=== PATIENT | male | born 1995 | race American Indian/Alaskan Native ===

== ENCOUNTER 2017-01-01 08:37 | Emergency (ER) | payer SELFPAY ==
[2017-01-01 08:48] VITALS: BP 145/85
[2017-01-01] MEDS ORDERED: ZITHROMAX PO ONE (09:53)
[2017-01-01] MEDS ORDERED: ROCEPHIN IM ONE (09:53)
[2017-01-01] MEDS ORDERED: XYLOCAINE 1% MPF 5 mL INFILTRATI ONE (09:56)
--- NOTE | 2017-01-01 10:01 | Emergency Department Report ---
ED Male HPI - General Chief complaint: Urogenital-Male Stated complaint: DISCHARGE Time Seen by Provider: 01/01/17 09:40 Source: patient Mode of arrival: Ambulatory Limitations: No Limitations - History of Present Illness Initial comments: Pt c/o penile discharge and dysuria x 1 week. PT states he had this problem a couple of times. PT states he was seen in October for it. PT states he has one partner and he does not use condoms. PT reports that his partner has been seen and tested and she does not have any STDs. MD Complaint: penile discharge -: Gradual Location: penis Radiation: none Severity scale (0 -10): 4 Quality: burning Consistency: intermittent (worse right after urination ) Improves with: other (the antibiotics that he was given in october ) discharge, dysuria. denies: fever, nausea/vomiting - Related Data Sexually active: Yes Previous Rx's Medication Instructions Recorded Last Taken Type Doxycycline Monohydrate 100 mg PO BID #14 capsule 10/18/16 Unknown Rx [Doxycycline Monohydrate CAP] Allergies Allergy/AdvReac Type Severity Reaction Status Date / Time No Known Allergies Allergy Verified 10/18/16 09:48 ED Review of Systems ROS: Stated complaint: DISCHARGE Other details as noted in HPI Comment: All other systems reviewed and negative Constitutional: denies: fever Gastrointestinal: denies: abdominal pain Genitourinary: as per HPI ED Past Medical Hx - Past Medical History Previous Medical History?: No - Surgical History Past Surgical History?: No - Social History Smoking Status: Never Smoker Substance Use Type: None - Medications Home Medications: Home Medications Medication Instructions Recorded Confirmed Last Taken Type Doxycycline Monohydrate 100 mg PO BID #14 capsule 10/18/16 Unknown Rx [Doxycycline Monohydrate CAP] ED Physical Exam - General Limitations: No Limitations General appearance: alert, in no apparent distress - Head Head exam: Present: atraumatic, normocephalic - Eye Eye exam: Present: normal appearance - ENT ENT exam: Present: normal exam - Neck Neck exam: Present: normal inspection - Respiratory Respiratory exam: Present: normal lung sounds bilaterally. Absent: respiratory distress, wheezes, accessory muscle use - Cardiovascular Cardiovascular Exam: Present: regular rate, normal rhythm, normal heart sounds - GI/Abdominal GI/Abdominal exam: Present: soft - Rectal Rectal exam: Present: deferred - Extremities Exam Extremities exam: Present: normal inspection, full ROM - Back Exam Back exam: Present: normal inspection, full ROM - Neurological Exam Neurological exam: Present: alert, oriented X3 - Psychiatric Psychiatric exam: Present: normal affect, normal mood - Skin Skin exam: Present: warm, dry ED Course Vital Signs 01/01/17 08:44 Temperature 98.4 F Pulse Rate 86 Respiratory 16 Rate Blood Pressure 145/85 - Reevaluation(s) Reevaluation #1: 01/01/17 10:00 Pt aware he has symptoms of STD. Will treat while in ED. PT encouraged to follow up for further testing. ED Medical Decision Making - Differential Diagnosis std Critical care attestation.: If time is entered above; I have spent that time in minutes in the direct care of this critically ill patient, excluding procedure time. ED Disposition Clinical Impression: Penile discharge Disposition: DISCHARGED TO HOME OR SELFCARE Is pt being admited?: No Does the pt Need Aspirin: No Condition: Stable Instructions: Sexually Transmitted Diseases (ED), Condom Use (ED), Safe Sex (ED ) Additional Instructions: Follow up with PCP or health dept for further testing No sex x 7 days let your partner know that she may need testing/ treatment Referrals: PRIMARY CARE, [Primary Care Provider] - 3-5 Days
== END 2017-01-01 11:27 | disposition home or self-care (01) ==
LOC: ED 08:37
DX: R36.9 Urethral discharge, unspecified (principal); R30.0 Dysuria
CPT/HCPCS: 87086; 87591; 96372; 99282; J0696

== ENCOUNTER 2018-01-16 10:40 | Emergency (ER) | payer SELFPAY ==
[2018-01-16 10:47] VITALS: BP 140/87
[2018-01-16] MEDS ORDERED: ROCEPHIN IM ONE (12:40)
[2018-01-16] MEDS ORDERED: XYLOCAINE 1% MPF 5 mL INFILTRATI ONE (12:40)
[2018-01-16] MEDS ORDERED: ZITHROMAX PO ONE (12:40)
[2018-01-16] MEDS ORDERED: MOTRIN PO ONE (12:42)
--- NOTE | 2018-01-16 12:46 | Emergency Department Report ---
Chief Complaint: Urogenital-Male Stated Complaint: PENILE DISCHARGE/STD Time Seen by Provider: 01/16/18 12:19 - HPI History of Present Illness: The patient's 22-year-old who presents for evaluation of dysuria. The patient reports dysuria and penile discharge for the past one day. He admits to protect sexual intercourse within the past 3 months. The patient denies fever, chills, night sweats, testicular swelling or pain, diarrhea, blood in the stool , dark tarry stool, hematuria, flank pain, inability to pass flatus. - Exam Vital Signs: Vital Signs 01/16/18 10:43 Temperature 98.7 F Pulse Rate 77 Respiratory 18 Rate Blood Pressure 140/87 O2 Sat by Pulse 99 Oximetry MSE screening note: Focused history and physical exam performed. Due to findings the following was ordered: ED Disposition for MSE Condition: Stable Referrals: PRIMARY CARE, [Primary Care Provider] - 3-5 Days
[2018-01-16 13:27] LABS: Bilirubin,Urine NEG (Negative); Blood,Urine NEG (Negative); Color,Urine Yellow (Yellow); Protein,Urine <15 mg/dL mg/dL (Negative)
--- NOTE | 2018-01-16 13:52 | Emergency Department Report ---
HPI - General Chief Complaint: Urogenital-Male Time Seen by Provider: 01/16/18 12:19 - HPI HPI: The patient's 22-year-old who presents for evaluation of dysuria. The patient reports suprapubic abdominal pain, cramping quality, mild in severity, constant for the past one day, and associated with dysuria and penile discharge for the past one day. He admits to unprotected sexual intercourse within the past 3 months. The patient denies fever, chills, night sweats, testicular swelling or pain, diarrhea, blood in the stool, dark tarry stool, hematuria, flank pain, inability to pass flatus. ED Past Medical Hx - Past Medical History Previous Medical History?: No - Surgical History Past Surgical History?: No - Social History Smoking Status: Never Smoker Substance Use Type: None - Medications Home Medications: Home Medications Medication Instructions Recorded Confirmed Last Taken Type Doxycycline Monohydrate 100 mg PO BID #14 capsule 10/18/16 Unknown Rx [Doxycycline Monohydrate CAP] Cephalexin [Keflex] 500 mg PO Q6HR #20 capsule 01/16/18 Unknown Rx Ibuprofen [Motrin] 800 mg PO Q8HR PRN #15 tablet 01/16/18 Unknown Rx metroNIDAZOLE [Flagyl] 500 mg PO Q12HR #14 tab 01/16/18 Unknown Rx ED Review of Systems ROS: Stated complaint: PENILE DISCHARGE/STD Other details as noted in HPI Constitutional: denies: fever ENT: denies: throat or neck pain Respiratory: denies: cough, shortness of breath Cardiovascular: denies: chest pain Endocrine: denies unexplained weight loss or gain Gastrointestinal: denies: abdominal pain, nausea Genitourinary: reports penile discharge and dysuria Musculoskeletal: denies: leg swelling Skin: denies: rash Neurological: denies: headache Hematological/Lymphatic: denies: easy bleeding or easy bruising Psych: denies sadness or hopelessness Physical Exam - Physical Exam Vital Signs: Vital Signs 01/16/18 10:43 Temperature 98.7 F Pulse Rate 77 Respiratory 18 Rate Blood Pressure 140/87 O2 Sat by Pulse 99 Oximetry Physical Exam: General: well-nourished, well-developed, no acute distress Head: Normocephalic, atraumatic Eyes: normal sclera ENT: Mucous membranes are pink and moist Neck: trachea midline, neck supple, No neck stiffness, no cervical adenopathy Respiratory: Breath sounds equal bilaterally, no wheezing, rales, or rhonchi Cardio: S1 and S2 present, no murmurs, rubs, gallops, capillary refill is brisk Abdomen: Normoactive bowel sounds, soft abdomen, she will be returned as a palpation present, no rigidity, no guarding or rebound tenderness Chest WALL/Back: No tenderness to palpation of the chest wall, no CVA tenderness with percussion Musc: No pitting edema Skin: No rash Neuro: no facial drooping, normal speech Psych: Normal affect ED Course Vital Signs 01/16/18 10:43 Temperature 98.7 F Pulse Rate 77 Respiratory 18 Rate Blood Pressure 140/87 O2 Sat by Pulse 99 Oximetry ED Medical Decision Making - Medical Decision Making The patient was seen and examined by myself. The patient is placed on a quality assurance monitor body and continuous pulse ox. On initial evaluation, the patient was found to be in no distress. Evaluation orders are placed. The patient given pain medicine. Lab results revealed elevated urinalysis WBC with positive leukocyte esterase, consistent with acute urinary tract infection. The patient is given antibiotic for treatment of urethritis. The patient given a prescription for treatment of urinary tract infection. The patient was reevaluated and reported that their symptoms were markedly improved. The patient is stable for discharge with outpatient follow-up. The patient is given follow-up and return instructions. The patient expressed understanding and agreed with the plan. The patient is discharged in stable condition. Critical care attestation.: If time is entered above; I have spent that time in minutes in the direct care of this critically ill patient, excluding procedure time. ED Disposition Clinical Impression: Acute UTI (urinary tract infection), Urethritis, unspecified Disposition: TO HOME OR SELFCARE Is pt being admited?: No Does the pt Need Aspirin: No Condition: Stable Instructions: Nonspecific Urethritis in Men (ED), Dysuria (ED) Referrals: PRIMARY CARE, [Primary Care Provider] - 3-5 Days [facility] [Outside] - 3-5 Days Forms: STI Treatment and Prevention Time of Disposition: 13:50
== END 2018-01-16 13:58 | disposition home or self-care (01) ==
LOC: ED 10:40
DX: N34.2 Other urethritis (principal)
CPT/HCPCS: 81001; 96372; 99284; J0696

== ENCOUNTER 2020-02-29 10:31 | Emergency (ER) | payer SELFPAY ==
[2020-02-29 11:03] VITALS: BP 129/78
--- NOTE | 2020-02-29 11:50 | Emergency Department Report ---
Chief Complaint: Urogenital-Male Stated Complaint: PENILE DISCHARGE Time Seen by Provider: 02/29/20 11:44 - HPI History of Present Illness: penile d/c x 2 days no testicular pain ambulatory wo difficulty normal vs - ROS Review of Systems: penile dc no lesions no test pain no fever - Exam Vital Signs: Vital Signs 02/29/20 11:01 Temperature 98.8 F Pulse Rate 70 Respiratory 18 Rate Blood Pressure 129/78 O2 Sat by Pulse 98 Oximetry Physical Exam: a/o s1s2 lungs cta penile dc- yellow no lesions MSE screening note: Focused history and physical exam performed. Due to findings the following was ordered: NO LIFE THREAT Educated on STI prevention and appropriate places for treatment Patient discussed with doctor:: YVONNE CABALLERO ED Medical Decision Making - Medical Decision Making no testicular pain vss non toxic ED Disposition for MSE Disposition: MED SCREENING EXAM-LEFT Condition: Stable Referrals: PRIMARY CARE, [Primary Care Provider] - 3-5 Days
== END 2020-02-29 12:13 | disposition left against medical advice (07) ==
LOC: ED 10:31
DX: R36.9 Urethral discharge, unspecified (principal)
CPT/HCPCS: 99281